=== PATIENT | male | born 1970 | race Caucasian/White ===

== ENCOUNTER 2023-02-28 18:02 | Emergency (ER) | payer OTHER | END 2023-02-28 21:24 | disposition home or self-care (01) | LOC: ED 18:02 | DX: I82.411 Acute embolism and thrombosis of right femoral vein (principal); I82.431 Acute embolism and thrombosis of right popliteal vein; I82.461 Acute embolism and thrombosis of right calf muscular vein; F17.200 Nicotine dependence, unspecified, uncomplicated; Z88.0 Allergy status to penicillin; Z88.5 Allergy status to narcotic agent ==

== ENCOUNTER 2024-09-29 10:31 | Emergency (ER) | payer OTHER ==
[~2024-09-29] VITALS: Ht 185.4 cm; Wt 139.7 kg
[~2024-09-29 10:31] MED LIST: ELIQUIS5 MG PO; NAPROSYN500 MG PO; OXYCODONE HCL10 MG PO; OXYCODONE HCL5 MG PO; PERCOCET 5-3251 EACH PO; PROMETHAZINE HC25 M1 PO; TERBINAFINE15 GM TOP; TRAMADOL HCL50 MG PO; ZOFRAN ODT4 MG SL
--- OUTSIDE RECORDS SUMMARY | 2024-09-29 10:39 | XMS ---
PreManage Notification: RUTH COFFEY Security Analysis Manager Events No recent Security Events currently on file CRITERIA MET - Group Notification CARE PROVIDERS UYEN HAMM Family Medicine 08/09/2023-Current PHONE: [phone] -[facility] Dentist: Supervisor [facility] PHONE: [phone] -Alok- Dentist: Supervisor Stone [facility] PHONE: [phone] [facility] PHONE: [phone] KELLIE TATE Nurse Practitioner: Family Current PHONE: [phone] Ashlee has no Care Guidelines for this patient. Eddie VISIT COUNT (12 MO.) 1 LY Rhoades TOTAL 1 NOTE: Visits indicate total known visits. ED/UCC VISIT TRACKING (12 MO.) 09/29/2024 10:32 LY Valle [place] TYPE: Emergency COMPLAINT: - LEFT KNEE INJURED INPATIENT VISIT TRACKING (12 MO.) No inpatient visits to display in this time frame [id number]
[2024-09-29] MEDS ORDERED: PERCOCET 7.5-31 EACH PO (11:53)
[2024-09-29] MEDS ORDERED: OXYCODONE/APAP 5/325 TAB PO ONE (12:00)
[2024-09-29] MEDS ORDERED: IBUPROFEN 600 MG TAB PO ONE (12:00)
[2024-09-29 12:05] VITALS: BP 141/89
== END 2024-09-29 12:06 | disposition home or self-care (01) ==
LOC: ED 10:31
DX: S83.92XA Sprain of unspecified site of left knee, initial encounter (principal); F17.200 Nicotine dependence, unspecified, uncomplicated; Z88.0 Allergy status to penicillin; Z88.5 Allergy status to narcotic agent; Z79.01 Long term (current) use of anticoagulants; X58.XXXA Exposure to other specified factors, initial encounter
CPT/HCPCS: 73560; 99283; A9270

== ENCOUNTER 2025-01-28 08:26 | Inpatient (IN) | payer OTHER ==
[~2025-01-28] VITALS: Ht 185.4 cm; Wt 145.6 kg
[2025-01-28] VITALS (7 sets, daily range): BP systolic 80–149; BP diastolic 49–100
[~2025-01-28 08:26] MED LIST changes: +PERCOCET 7.5-31 EACH PO
--- OUTSIDE RECORDS SUMMARY | 2025-01-28 08:29 | XMS ---
PreManage Notification: RUTH COFFEY Security It Applications Manager Events No recent Security Events currently on file CRITERIA MET - Group Notification CARE PROVIDERS UYEN HAMM Family Medicine 08/09/2023-Current PHONE: [phone] -[facility] Dentist: Programmer Numerical [employer] [facility] PHONE: [phone] -Alok- Dentist: Programmer Numerical Control [facility] Dental [facility] PHONE: [phone] [facility]: [facility] Health [facility] PHONE: [phone] KELLIE TATE Nurse Practitioner: Family Current PHONE: [phone] Ashlee has no Care Guidelines for this patient. Eddie VISIT COUNT (12 MO.) 2 LY Rhoades TOTAL 2 NOTE: Visits indicate total known visits. ED/UCC VISIT TRACKING (12 MO.) 01/28/2025 08:27 LY [facility]le OR TYPE: Emergency COMPLAINT: - ABDOMINAL PAIN 09/29/2024 10:32 LY [place]le OR TYPE: Emergency COMPLAINT: - LEFT KNEE INJURED DIAGNOSES: - Allergy status to narcotic agent - Allergy status to penicillin - Exposure to other specified factors, initial encounter - assisted (current) use of anticoagulants - Nicotine dependence, unspecified, uncomplicated - Pain in left knee - Sprain of unspecified site of left knee, initial encounter INPATIENT VISIT TRACKING (12 MO.) No inpatient visits to display in this time frame [id number]
[2025-01-28] MEDS ORDERED: MORPHINE SULFATE 4 MG/ML VIAL IV ONE ×2 (08:45→10:15)
[2025-01-28 08:50] LABS: BASOPHILS 0.3 % (0.2-1.2); EOSINOPHILS 0.1 % (0.8-7.0); LYMPHOCYTES 9.9 % (21.8-53.1); MCH 30.4 PG (25.7-32.2); MCHC 34.9 g/dL (32.3-36.5); MCV 87.1 fL (79.0-92.2); MONOCYTES 6.8 % (5.3-12.2); NEUTROPHILS 82.3 % (34.0-67.9); RBC 5.43 M/uL (4.63-6.08)
[2025-01-28 09:13] LABS: ALT (SGPT) 40.0 U/L (14-59); AST (SGOT) 23.0 U/L (15-37); GLOMERULAR FILTRATION RATE,EST 76.0 mL/min (>60); PROTEIN, TOTAL 8.4 g/dL (6.4-8.2); UREA NITROGEN 11.0 mg/dL (7-18)
[2025-01-28] MEDS ORDERED: SODIUM CHLORIDE 0.9% 500 ML IV PRN (09:30)
[2025-01-28] MEDS ORDERED: PIPERACILLIN/TAZOBACTAM 4.5 GM in SODIUM CHLORIDE 0.9% 100 ML IV ONE (09:30)
[2025-01-28 10:13] LABS: LACTIC ACID, BLOOD 2.3 mmol/L (0.4-2.0)
[2025-01-28 10:43] LABS: INR 1.08 (0.80-1.30); PROTIME 13.6 Sec (11.2-14.2)
[2025-01-28] MEDS ORDERED: LACTATED RINGER'S 1,000 ML IV SCH ×3 (10:45→15:45)
[2025-01-28] MEDS ORDERED: MORPHINE SULFATE 10 MG/ML VIAL IV PRN ×2 (10:45→15:45)
[2025-01-28] MEDS ORDERED: KETOROLAC TROMETHAMINE 30 MG/ML VIAL IV PRN ×3 (10:45→19:00)
[2025-01-28] MEDS ORDERED: FAMOTIDINE 20 MG/ 2 ML VIAL IV SCH ×2 (10:48→21:00)
[2025-01-28] MEDS ORDERED: LABETALOL HCL 200 MG TAB PO ONE (11:15)
[2025-01-28 11:59] LABS: LACTIC ACID, BLOOD 2.1 mmol/L (0.4-2.0)
[2025-01-28] MEDS ORDERED: LABETALOL HCL 20 MG/4 ML VIAL IV ONE (12:00)
--- NOTE | 2025-01-28 12:15 | NUR ---
PT BROUGHT TO [employer] VIA STRETCHER, [employer] AT BEDSIDE. PT ABLE TO AMBULATE TO BED, WITHOUT DIFFICULTY. ORIENTED TO CALL LIGHT, IN REACH. PAIN 7/10, PRN MEDICATION GIVEN (SEE EMAR). BLOOD PRESSURE MEDICATION GIVE WELL (SEE VS, AND EMAR). NO OTHER NEEDS AT THIS TIME.
[2025-01-28] MEDS ORDERED: LABETALOL HCL 200 MG TAB PO SCH (12:21)
[2025-01-28] MEDS ORDERED: HYDROmorphone HCL 1 MG/ML SYR IV PRN (12:30)
[2025-01-28] MEDS ORDERED: LABETALOL HCL 20 MG/4 ML VIAL IV PRN (12:30)
[2025-01-28 13:46] LABS: CHOLESTEROL/HDL RATIO 5.2; LDL CHOLESTEROL 145.0 mg/dL (< 129); NON-HDL CHOLESTEROL 198.0; VLDL CHOLESTEROL 53.0
[2025-01-28] MEDS ORDERED: PIPERACILLIN/TAZOBACTAM 4.5 GM in SODIUM CHLORIDE 0.9% 100 ML IV SCH ×2 (14:00→19:00)
--- NOTE | 2025-01-28 14:00 | NUR ---
ECHO IN ROOM, PT NEEDING TO ROLL ON LEFT SIDE. PAIN 10/10, PRN MEDICATION GIVEN (PER EMAR).
[2025-01-28] MEDS ORDERED: SEVOFLURANE 250 ML BTL INH ONE (14:09)
--- NOTE | 2025-01-28 14:42 | NUR ---
UR CLINICAL REVIEW: EYAL, MEETS OBS FOR APPENDECTOMY POSITIVE CT, IV FLUIDS, IV ANALGESICS, NPO EOCCO OBS 01/28/2025 @ 1049 ORDER MATCHES REG NO AUTH REQUIRED FOR OBS PER MEDICAID PLAN TO DC TO HOME WHEN MEDICALLY READY 01/29/2025
--- NOTE | 2025-01-28 14:51 | NUR ---
PT IN ROOM PAIN DECREASED TO 5/10, TOLERABLE. DENIES NEEDS CALL LIGHT IN REACH. VISITOR AT BEDSIDE.
--- NOTE | 2025-01-28 15:03 | NUR ---
INTO SEE PATIENT. PERSONAL HEALTH INFORMATION REVIEWED. PATIENT LIVES IN A CAR OUTSIDE HIS FRIENDS HOUSE. HE STATES BILLS HAVE BEEN TO MUCH AND HE STRUGGLES FOR FOOD. GAVE HIM OUR HOMELESS RESOURCES PHAMPLET. PATIENT STATES HES BEEN TRYING TO GET DISABLITIY FOR A WHILE NOW. DOES NOT USE DME. PATIENT STATES "THEY JUST GAVE ME SOME MEDICINE." NO FUTHER CM NEEDS AT THIS TIME. WILL FOLLOW UP TOMORROW.
[2025-01-28] MEDS ORDERED: LACTATED RINGER'S 1,000 ML IV ONE (15:45)
[2025-01-28] MEDS ORDERED: CEFAZOLIN SODIUM 3 GM/30 ML SYR IV SCH (15:45)
--- NOTE | 2025-01-28 16:17 | NUR ---
PREPROCEDURE WIPEDOWN COMPLETE, BED CHANGE COMPLETE, NEW GOWN, SCDS IN PLACE. PT ABLE TO PERFORM TASKS INDEPENDENTLY. IVF BOLUS INFUSING, CALL LIGHT IN RANGE.
[2025-01-28] MEDS ORDERED: DEXAMETHASONE SOD PHOS 4 MG/ML VIAL ONE (16:31)
[2025-01-28] MEDS ORDERED: LIDOCAINE HCL 2% 5 ML SDV ONE (16:31)
[2025-01-28] MEDS ORDERED: SUCCINYLCHOLINE IN 0.9% NACL 200 MG/10 ML SYRINGE ONE (16:31)
[2025-01-28] MEDS ORDERED: fentaNYL citrate 100 MCG/2 ML VIAL ONE (16:31)
[2025-01-28] MEDS ORDERED: ACETAMINOPHEN 1,000 MG/100 ML VIAL ONE (16:31)
[2025-01-28] MEDS ORDERED: ROCURONIUM BROMIDE 50 MG/5 ML SYR ONE ×2 (16:31→17:01)
--- NOTE | 2025-01-28 16:36 | NUR ---
PT REPORT GIVEN TO OR NURSES, JUN MATTHEW AND JUN YOU. ABX PULLED FROM PYXIS AND SCANNED, GIVEN TO NURSES.
[2025-01-28] MEDS ORDERED: LIDOCAINE HCL 4% 5 ML AMP ONE (16:50)
[2025-01-28] MEDS ORDERED: PHENYLEPHRINE HCL 10 MG/ML VIAL ONE (17:11)
[2025-01-28] MEDS ORDERED: VASOPRESSIN 20 UNITS/ML VIAL ONE (17:14)
[2025-01-28] MEDS ORDERED: GLYCOPYRROLATE 1 MG/5 ML MDV ONE (18:04)
[2025-01-28] MEDS ORDERED: SUGAMMADEX SODIUM 200 MG/2 ML ML ONE (18:39)
[2025-01-28] MEDS ORDERED: IBLOOD GLUCOSE TEST STRIP 1 EA TEST VI PRN (19:00)
[2025-01-28] MEDS ORDERED: fentaNYL citrate 50 MCG/ML SDV IV PRN (19:00)
[2025-01-28] MEDS ORDERED: NALOXONE HCL 0.4 MG SYR IV PRN (19:00)
[2025-01-28] MEDS ORDERED: ALBUTEROL/IPRATROPIUM 3 ML NEB ONE (19:12)
[2025-01-28] MEDS ORDERED: ALBUTEROL/IPRATROPIUM 3 ML NEB INH ONE (19:15)
--- NOTE | 2025-01-28 19:24 | NUR ---
01/28/251923 Jolanta Travis 190-PT ARRIVES TO PACU ON 6L VIA MASK. PT IS NONAROUSABLE TO TACTILE STIMULI. RESP IS LABORED. WHEEZING NOTED. 1909-PHONE CALL TO RT. 1912-RT AT BEDSIDE. RESP LABORED. WHEEZING NOTED. PT IS NONAROUSABLE. 1916-PT AROUSABLE TO VERBAL STIMULI. OPA REMOVED. BIPAP STARTED.
[2025-01-28] MEDS ORDERED: IBUPROFEN 600 MG TAB PO PRN (19:45)
[2025-01-28] MEDS ORDERED: ACETAMINOPHEN 500 MG TAB PO PRN (19:45)
[2025-01-28] MEDS ORDERED: OXYCODONE/APAP 7.5/325 TAB PO PRN (19:45)
--- NOTE | 2025-01-28 19:50 | NUR ---
RECEIVED REPORT FROM M/S NURSE AND PACU NURSE ABOUT PATIENT. PT ON BPAP AT THE TIME OF ARRIVAL, WITHIN MINUTES HE PULLED BIPAP OFF AND STATED "I CAN'T BREATH" PT REMAINED ON ROOM AIR SPO2 92%. PT AWAKE AND ASKED QUESTION AND WENT BACK TO SLEEP.
--- NOTE | 2025-01-28 20:30 | NUR ---
PT AWAKE, PROVIDED WATER AND DRAINED ELIZABETH. PT FELL BACK TO SLEEP 2129 PT AWAKE GAVE HIM SO JUICE AND DENIES PAIN AT THIS TIME. TALKING ON HIS STAR PHONE AT THIS TIME.
--- NOTE | 2025-01-28 21:36 | NUR ---
PT AWAKE DENIES NEED TO VOID AT THIS TIME, URINAL AT BEDSIDE.
--- NOTE | 2025-01-28 22:30 | NUR ---
PT SLEEPING SPO2 DECREASED TO 84% PT PLACED ON O2 2L'S VIA NC. 2245: PT AWAKE, ASKING FOR HELP, HELPED PT PLACE PHONE PRESS CLIPPER TO PHONE AND ON BEDSIDE STAND. PT WANTING TO EAT BISQUET AND GRAVEY. EXPLAINED TO HIM THAT HE NEEDED TO DRINK HIS JUICE AND WATER FIRST. HE AGREED AND FEEL BACK TO SLEEP.
[2025-01-28] MEDS ORDERED: ALBUTEROL/IPRATROPIUM 3 ML NEB INH PRN (23:15)
--- NOTE | 2025-01-28 23:31 | NUR ---
PT APPEARS TO BE SLEEPING RESP RATE EVEN AND UNLABORED. SPO2 95% ON 2L'S NC AT THIS TIME.
[2025-01-29] VITALS (16 sets, daily range): BP systolic 99–146; BP diastolic 60–91
--- NOTE | 2025-01-29 01:30 | NUR ---
PT AWAKEN AND ASKED IF HE WOULD TRY TO VOID. PT WAS ABLE TO VOID 300MLS OF CONTERATED URINE AT THIS TIME. PT IS ABLE TO COUGH AND DEEP BREATH. ENCOURAGE TO USE ABD SPLINT OF PILLOWS TO HOLD HIS INCISIONS DURING COUGHING. PT DOES FOLLOW DIRECTIONS.
--- NOTE | 2025-01-29 06:08 | NUR ---
PT AWAKENS WHEN SPOKEN TOO, HAS PAIN WHEN COUGHING, ASKED PT IF HE COULD VOID "NO i HAVE NOT DRANK ANYTHING YET" ELIZABETH DRAIN EMPTY AND DRESSING NO CHANGES NOTED AT THIS TIME. WILL OFFER ORAL PAIN MEDICATIONS. PT HAS SLEPT ALL NIGHT. IS AT THE BEDSIDE AND REMAINS ON 2L'S VIA NC. FRESH JUICE GIVEN.
[2025-01-29 06:25] LABS: ALT (SGPT) 29.0 U/L (14-59); AST (SGOT) 24.0 U/L (15-37); GLOMERULAR FILTRATION RATE,EST 76.0 mL/min (>60); PROTEIN, TOTAL 6.7 g/dL (6.4-8.2); UREA NITROGEN 14.0 mg/dL (7-18)
--- NOTE | 2025-01-29 06:26 | NUR ---
LAB PRESENT TO OBTAIN LAB AT THIS TIME.
[2025-01-29 06:38] LABS: BASOPHILS 0.3 % (0.2-1.2); EOSINOPHILS 0.1 % (0.8-7.0); LYMPHOCYTES 9.6 % (21.8-53.1); MCH 30.9 PG (25.7-32.2); MCHC 33.6 g/dL (32.3-36.5); MCV 92.0 fL (79.0-92.2); MONOCYTES 9.0 % (5.3-12.2); NEUTROPHILS 80.4 % (34.0-67.9); RBC 4.37 M/uL (4.63-6.08)
--- NOTE | 2025-01-29 06:39 | NUR ---
PT TOLERATING PO LIQUIDS OKAY SO FAR THIS SHIFT, PO PAIN MEDS GIVEN AT THIS TIME ONE TAB, AND SOME APPLESAUSE AND PUDDING CUP. CALL LIGHT WITHIN REACH AND URINAL. PT WILL CALL WHEN HE IS COMPLETED VOIDING.
--- NOTE | 2025-01-29 07:37 | NUR ---
assumed care, rn in pt room - white board updated, pt eyes closed resting in bed, hr 92, call light in reach,
[2025-01-29] MEDS ORDERED: IBLOOD GLUCOSE TEST STRIP 1 EA TEST XX PRN (08:00)
[2025-01-29] MEDS ORDERED: INSULIN LISPRO 100 UNIT/ML ML SUB-Q SCH (08:00)
[2025-01-29] MEDS ORDERED: DEXTROSE 50% 50 ML SYR IV PRN ×2 (08:00)
[2025-01-29] MEDS ORDERED: IBLOOD GLUCOSE TEST STRIP 1 EA TEST VI SCH (08:00)
[2025-01-29] MEDS ORDERED: GLUCAGON,HUMAN RECOMBINANT 1 MG/ML VIAL SUB-Q PRN (08:00)
[2025-01-29] MEDS ORDERED: DEXTROSE 5% 1,000 ML IV PRN (08:00)
--- NOTE | 2025-01-29 09:06 | NUR ---
in room with dr hannah, awaken pt and bs checked 150 before meal - dr educates pt on new dx of diabetes and rn explains what achs accuchecks are. pt amb to br to void 350 and room air trial per dr request. sob with exertion - pt reports to that he currently smokes 1 ppd. 89 % sats on room air and dr bucio like 88-95%. pt up in chair - rapid breating and dim lung sounds, pt obese and large abd. ble with 3+ pitting edema and dark color. pt reports has been this way over 1 year. he reports he lives in his car at a friends property - homeless and can not afford to see dr or get prescriptions, with his life choices. He has a dog. pt in chair and IS is educated and pt demonstrates with encouragement. call light in reach. familia drain to rlq has red drainage and drain is stripped and site is wnl. scope sites to abd from appy wnl - old drainage.
[2025-01-29] MEDS ORDERED: NICOTINE 21 MG/24 HR 1 EA TDSY TD SCH (09:12)
--- NOTE | 2025-01-29 09:44 | NUR ---
ALERT AND ORIENTED IN RECLINER. DOES NOT REMEMBER CONVERSATION WITH CM YESTERDAY. REMINDED OF BROCHURE PROVIDED 01/28/25. REVIEWED WITH HIM RESOURCES FOR FOOD, HOUSING AND RESOURCES THROUGH [employer] ARRAY RX CARD PROVIDED. DISCUSSED HIS INABILITY TO PAY FOR ANY MEDS. STATES HE HAS NO MONEY AT THIS TIME FOR MEDICATIONS, EVEN FOR [employer] $4 MED PROGRAM. DISCUSSED HIS RETURN TO HIS FRIEND'S PLACE WHERE HE IS STAYING IN HIS CAR AND DISCUSSED GETTING HIM SCHEDULED WITH [facility].
--- NOTE | 2025-01-29 09:55 | NUR ---
dr fleming in to see pt - 10/25 pain - iv toradol given, familia shown to . wnl - pt tolerated diet cl/oatmeal. advance to 60 g carb ada for lunch. pt up in chair. diabetic education reviewed with insulin shot. flowsheet reviewed with pt. nicotine patch on left chest - call light in reach.
--- NOTE | 2025-01-29 10:54 | EKG ---
[facility] [address] [facility] [place], [place] [address] Signed Normal sinus rhythm Confirmed by Sara Marquez DO ([id number]) on 01/29/2025 10:54:44 AM Electronically Signed By: SARA MARQUEZ DO 01/29/25 1054 PATIENT NAME: RUTH COFFEY JR Electrocardiogram DATE OF : 68 PHYSICIAN: SARA MARQUEZ DO REPORT #: [id number] REPORT IS CONFIDENTIAL AND NOT TO BE RELEASED WITHOUT AUTHORIZATION
--- NOTE | 2025-01-29 11:56 | OR ---
[facility] [address] [place], [place] [address] Signed DATE OF OPERATION: 01/28/2025 SURGEON: So Gipson MD PREOPERATIVE DIAGNOSES: 1. Acute appendicitis. 2. Morbid obesity, chronic obstructive pulmonary disease, poorly-controlled hypertension (now controlled), history of hepatitis. POSTOPERATIVE DIAGNOSES: 1. Acute appendicitis. 2. Morbid obesity, chronic obstructive pulmonary disease, poorly-controlled hypertension (now controlled), history of hepatitis. 3. Relative hypoxemia secondary to pulmonary secretions. 4. Acute gangrenous appendicitis, retrocecal. PROCEDURES: 1. Flexible bronchoscopy with bronchoalveolar lavage for clearance of secretions. 2. Laparoscopic appendectomy, prolonged, complicated, difficult. ANESTHESIA: General endotracheal, Marlo Mc, AIRCRAFT BODY REPAIRER, and local 0.25% Marcaine with epinephrine 10 mL. INDICATION: This 54-year-old white man is homeless and lives in his car locally. He has had at least 24 hours of increasing right lower abdominal pain. He presented to the emergency room where he was evaluated by Dr. Reardon. He was recognized as having significant underlying problems including uncontrolled hypertension with a presenting blood pressure greater than 220/120, known underlying pulmonary disease, morbid obesity, and prior history of cirrhosis, but not clinically with ascites. A CT scan was performed, which showed fatty liver but no evidence of nodular liver nor sign of ascites, but did confirm significant appendicitis. He is markedly tender and his white count is greater than 20,000. Consultation was undertaken with Dr. Colbert, hospitalist, who assisted in control of his blood pressure now in a normal range using Lopressor predominantly. The patient has been fluid resuscitated, given intravenous antibiotic Ancef and Flagyl, and now to undergo appendectomy preferred by laparoscopic approach. The risk of bleeding, infection, need for open procedure, and other unforeseen complications was reviewed with Electronically Signed By: SO GIPSON MD 01/29/25 1156 PATIENT NAME: RUTH COFFEY JR OPERATIVE REPORT DATE OF : [birth year] REPORT #: [id number] PHYSICIAN: SO GIPSON MD PCP: ALEX NUGENT PA-C REPORT IS CONFIDENTIAL AND NOT TO BE RELEASED WITHOUT AUTHORIZATION [facility] [address] [place], [place] [address] Signed him in detail. He understands and wished to proceed. FINDINGS: He was intubated without difficulty. He had relative hypoxemia in a CO2 waveform which was somewhat unusual in a hashtag configuration with a notch on the uptake of the curve. The endotracheal tube was changed out and ultimately I performed flexible bronchoscopy, which did show some secretions in the airways. No sign of neoplasm or obstruction and a bronchoalveolar lavage was undertaken as well. This did seem to improve his hypoxemia to a degree. As regards to the appendectomy, he had abdominal obesity including intraabdominal fat and a finding of the appendix gangrenous and in a retrocecal configuration, which made for a very challenging operation. It was accomplished safely, however, with complete removal of the appendix and no untoward bleeding. A drain was left in place. Arrangement for a BiPAP device postoperatively has been made and he will be more fully managed in the intensive care unit postoperatively. DESCRIPTION OF PROCEDURE: The patient was brought to the operating room, given a general endotracheal anesthetic. He was noted to have relative hypoxemia given his fractionated oxygen and relative hypotension with a systolic pressure variably between 69 and 73. Various medications were given to improve this. His heart rate was in the 60s dominantly. Glycopyrrolate was given with some benefit. Ultimately, he had ephedrine, Bonifacio-Synephrine, and other agents to sustain a reasonable blood pressure. The CO2 monitor showed a hashtag type CO2 wave but with the on the front side of the curve, which was considered unusual. On that basis, the cutter down exchanged the endotracheal tube for another and it was deemed advisable to perform flexible bronchoscopy. Initially, a disposable GlideScope 3 mm bronchoscope was inserted with the tracheal adapter in place by me. This showed some tenacious secretions of the endotracheal tube, but also of the right and left mainstem bronchi. It was certainly not occlusive, but it was definitely present. Suctioning through this device was unsuccessful and therefore a conventional Olympus flexible bronchoscope with camera attachment was then used allowing for suctioning of these tenacious secretions. They were not copious, but they were definitely present and bronchoalveolar lavage was undertaken with saline solution on both right and left sides in the segmental bronchi. By conclusion, complete clearance of any secretions was noted. It appeared that his oxygenation was improved on that basis alone. The operation proceeded having undergone abdominal clipping and preparation with Hibiclens solution. An infraumbilical incision was made and using an open Reynaldo Electronically Signed By: SO GIPSON MD 01/29/25 1156 PATIENT NAME: RUTH COFFEY OPERATIVE REPORT DATE OF : [birth year] REPORT #: [id number] PHYSICIAN: SO GIPSON MD PCP: ALEX NUGENT PA-C REPORT IS CONFIDENTIAL AND NOT TO BE RELEASED WITHOUT AUTHORIZATION [address] [address] Signed cannula technique, pneumoperitoneum was achieved to a level of 10 mmHg of carbon dioxide gas. This did not have an adverse effect on his vital signs in any way. Another 12 mm epigastric port was placed and camera placed to that site. Single hand manipulation of the right lower quadrant did identify omental adhesions and some inflammatory fluid. The appendix at that point was not visualized. The cecum was well visualized. The right lower quadrant 5 mm port was placed and with 2-hand manipulation, bowel loops and omentum could be from the right lower abdomen, more fully identifying the cecum. The appendix was not free hanging or particularly visible at that point. The Tinea was followed to its base in the cecum and the base of the appendix could ultimately be identified. With various manipulations, one could see that this was a markedly dilated and essentially gangrenous appendix and located in the retrocecal position. A 5 mm port was placed in the mid right abdomen and a fan retractor was used to provide better exposure. Various manipulations which were undertaken ultimately creating a window between the cecum and the appendix and using an Endo-JUDY stapling device with a vascular load, the base of the appendix was transected, flushed with the cecum. This allowed for elevation of the appendix and sequential dissection into the retroperitoneum elevating the mesoappendix and applying clips rather than a stapler at that point. The appendix was relatively lengthy and ultimately the remnant of the mesoappendix could be identified. It was distracted without intention showing no sign of bleeding. The appendix was placed in an endobag and extracted through the infraumbilical port site, opened and appendix expected showing gangrenous changes, but complete excision including the tip of the appendix without question. Irrigation was undertaken in the right lower quadrant in the region of the cecum and the fatty tissue that represented the mesoappendix was apparently hemostatic. Then, an Endo-JUDY vascular load was applied across this fatty tissue to more fully secure it. Irrigation was undertaken in a copious way and a 7 mm flat Enrique drain was placed in the retrocecal area. A 7 mm flat Enrique drain exited through the right lower quadrant incision. A mattress stitch was used to secure the drain. In the inner table of the abdomen, there was some oozing of venous blood. This was secured with electrocautery. The fan retractor port was removed showing no sign of bleeding. Camera was replaced to the infraumbilical site and in the upper abdomen. Irrigation in the region of the hepatic dome was undertaken, removing all excess irrigation fluid. The epigastric port was removed showing no sign of bleeding. The Reynaldo cannula at the umbilicus was removed and the fascial layer reapproximated with interrupted 0 Vicryl suture as well as a running 0 PDS suture. Irrigation was undertaken more fully and the skin was infiltrated with 0.25% Marcaine with epinephrine 10 mL in total. The patient maintained good hemodynamics through the course of operative intervention. The skin was then closed with interrupted 3-0 Vicryl and Steri-Strips were then applied. The patient was Electronically Signed By: SO GIPSON MD 01/29/25 1156 PATIENT NAME: RUTH COFFEY DHRUV OPERATIVE REPORT DATE OF : [birth year] REPORT #: [id number] PHYSICIAN: SO GIPSON MD PCP: ALEX NUGENT PA-C REPORT IS CONFIDENTIAL AND NOT TO BE RELEASED WITHOUT AUTHORIZATION [address] [address] Signed ultimately extubated and transferred to recovery room for further management. He maintained good vital signs throughout the operation. MD BOBBY Gotti/MIGUEL ANGELL /[id number] cc: BÁRBARA Hurtado Copies: ~ Electronically Signed By: SO GIPSON MD 01/29/25 1156 PATIENT NAME: ALEXXRUTH JR OPERATIVE REPORT DATE OF : [birth year] REPORT #: [id number] PHYSICIAN: SO GIPSON MD PCP: ALEX NUGENT PA-C REPORT IS CONFIDENTIAL AND NOT TO BE RELEASED WITHOUT AUTHORIZATION
--- NOTE | 2025-01-29 11:56 | HP ---
[facility] [address] [place], [place] [address] Signed ADMISSION DATE: 01/28/2025 REASON FOR ADMISSION: Acute appendicitis, concurrent multiple medical problems including poorly controlled hypertension. HISTORY OF PRESENT ILLNESS: This morbidly obese, BMI 42.3, 145 kg, 6 feet and 1, white man is homeless and lives in his car. He has done so for the past three years on a property of a "friend" in the [facility] [place] [facility]. He presented to the emergency room today where he was evaluated by Dr. Fung with complaints of severe right lower abdominal pain. This has been going on for more than a day by the sounds of it. Evaluation included CBC showing a white count of 20.4, hematocrit of 47.3, and platelet count of 313,000. His coag studies were normal with an INR of 1.08. Urinalysis was canceled and a Chem profile performed showed a normal sodium, potassium of 3.7, and a creatinine of 1.14, glucose 150, and lactic acid of 2.3. He is considered a code sepsis, given intravenous fluid administration allowing his lactate to improve to 2.1 by 11:30 and ultimately 1.8 by 2:25 p.m. Quite notably, he was significantly hypertensive at presentation 215/124. Consultation was undertaken with Dr. Colbert, the hospitalist. The patient was given labetalol with good benefit and he currently now has a blood pressure of 129/64. His pulse is now 63. An echocardiogram was performed, though I do not currently have the results of that study. The patient says he has had persistent right lower abdominal pain for at least 12 hours and possibly more. He has had no associated nausea or vomiting. He does have a history report of cirrhosis with notable fatty liver disease, history of kidney stones and deep venous thrombosis and has chronic bilateral lower extremity edema. He is taking no medications currently. He was not compliant with Eliquis due to its cost. His right lower extremity was considered to have prior history of DVT in July of 2023 over a year ago. He does have history of smoking status (every day) and surgical history of cholecystectomy, right hand and left foot surgery, liver biopsy, femoral artery repair at [facility], and history of blood transfusion. ALLERGIES: He does have allergies to penicillin, which is considered mild with nausea and hydrocodone. SOCIAL HISTORY: He lives alone in his car as described. He is not , has no children he says. Electronically Signed By: SO GIPSON MD 01/29/25 1156 PATIENT NAME: RUTH COFFEY HISTORY AND PHYSICAL DATE OF : [birth year] REPORT #: [id number] PHYSICIAN: SO GIPSON MD PCP: ALEX NUEGNT PA-C REPORT IS CONFIDENTIAL AND NOT TO BE RELEASED WITHOUT AUTHORIZATION [address] [address] Signed An ultrasound was performed of his lower extremities today showing no evidence of deep venous thrombosis. Chest x-ray showed mild cardiomegaly and low lung volumes. A CT scan showed acute appendicitis without evidence of abscess or perforation. 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 A hypodense lesion in the upper pole of left kidney 1.6 cm was noted and bibasilar segmental atelectasis. At present, he has primarily right lower abdominal pain. No chest pain, shortness of breath, or other similar problem. PHYSICAL EXAMINATION: GENERAL: This is a very large man, who does not look to be systemically toxic at this time. VITAL SIGNS: Current vital signs show blood pressure 129/64, pulse of 78. HEENT: Mucous membranes are dry, however. Trachea is midline. CHEST: Shows normal respiratory excursion without tachypnea. HEART: Regular. ABDOMEN: Quite markedly obese. Rovsing sign is negative. There is marked tenderness in right lower quadrant. EXTREMITIES: Show bilateral edema. There is no sign of ulceration at this time. LABORATORY STUDIES: Showed a white count 20.4, hematocrit 47.3, platelets 337. Coag studies normal. INR 1.08 and previously noted. Electrolytes normal. ASSESSMENT: The patient has acute appendicitis for which appendectomy would be the appropriate treatment in his situation, though it may be challenging given his extreme obesity. The laparoscopic approach would be most appropriate if possible. Review of his CT does not show nodular changes of the liver and I see no evidence of ascites, although with a prior reported history of cirrhosis, one has some concern obviously. He has no stigmata currently of portal hypertension or thrombocytopenia, which is a secondary indicator and I do not detect splenomegaly per se. The risks of operation were reviewed with him, which include bleeding, infection, need for an open rather than a laparoscopic approach. He understands this and wishes to proceed. We have taken as much care as possible to optimize him for operation. I believe he is medically stationary in that regard, not currently hypertensive and certainly with peritonitis and peritoneal findings of appendicitis. Electronically Signed By: SO GIPSON MD 01/29/25 1156 PATIENT NAME: RUTH COFFEY HISTORY AND PHYSICAL DATE OF : [birth year] REPORT #: [id number] PHYSICIAN: SO GIPSON MD PCP: ALEX NUGENT PA-C REPORT IS CONFIDENTIAL AND NOT TO BE RELEASED WITHOUT AUTHORIZATION [facility] [address] [place] [address] Signed MD BOBBY Gotti/ARIANNE /[id number] cc: Darshan Fung MD [facility] RADAMES Hodge Copies: ~ Electronically Signed By: SO GIPSON MD 01/29/25 1156 PATIENT NAME: ALEXXRUTH HISTORY AND PHYSICAL DATE OF : 68 REPORT #: [id number] PHYSICIAN: SO GIPSON MD PCP: ALEX NUGENT PA-C REPORT IS CONFIDENTIAL AND NOT TO BE RELEASED WITHOUT AUTHORIZATION
--- NOTE | 2025-01-29 16:36 | NUR ---
pt sleeping in chair - awakened and pt denies needs. explained trsf to ms 109 - report was given to jeet candelario, all pt belongings to room 109. vss - taken in ccu then pt taken in chair to new room by this rn. familia drained wnl. and bedside report i/o to jeet.
--- NOTE | 2025-01-29 16:39 | NUR ---
PT TO [employer] VIA RECLINER ALERT AND INTERACTIVE REPORT RECEIVED FROM CCU RN. PT AGREES HE IS COMFORTABLE FRESH H20 TO CHAIRSIDE ORIENTED TO ROOM AND CONTROLS.
--- NOTE | 2025-01-29 16:50 | NUR ---
PT UP TO TOILET APPEARS STEADY ON HIS FEET. AMBULATES THE ROTH SBA PT SOB BUT OTHERWISE TOLERATES IT WELL. RECOVERS BREATH QUICKLY AT REST
[2025-01-29] MEDS ORDERED: AMOXICILLIN/CLAVULANATE K 875 MG TAB PO SCH (17:00)
[2025-01-29] MEDS ORDERED: ATORVASTATIN 10 MG TAB PO SCH (17:00)
--- NOTE | 2025-01-29 17:25 | NUR ---
PT REMAINS UP IN THE CHAIR EATS 100% OF EVENING MEAL. REQUESTS MORE FLUIDS. SATS 94% ON RA NO OTHER NEEDS
--- NOTE | 2025-01-29 19:34 | NUR ---
IN TO CHECK ON PT, PT RESTING WITH EYES CLOSED IN HIS CHAIR. CALL LIGHT WITH IN REACH. PULSE OX 90% ON RA.
[2025-01-29] MEDS ORDERED: FAMOTIDINE 20 MG TAB PO SCH (21:00)
[2025-01-29] MEDS ORDERED: LOSARTAN POTASSIUM 25 MG TAB PO SCH (21:00)
--- NOTE | 2025-01-29 21:54 | NUR ---
pt CPOX WAS ALARMING. pt WAS DESATTING TO 81% WHILE ON RA AND ASLEEP. THIS RN PLACED pt ON 1LNC TO MAINTAIN SAT AT 88 - 92%. pt DENIES ANY OTHER NEEDS AT THIS TIME. CALL LIGHT WITHIN REACH.
--- NOTE | 2025-01-29 22:29 | NUR ---
IN TO CHECK ON PT, PT RESTING WITH EYES CLOSED. PT ON 1L/NC PULSE OX 92%, PULSE 86. CALL LIGHT WITH IN REACH.
--- NOTE | 2025-01-29 23:36 | NUR ---
IN TO CHECK ON PT, PT RESTING WITH EYES CLOSED. PT PULSE OX 91% ON 1L/NC. CALL LIGHT WITH IN REACH.
--- NOTE | 2025-01-30 00:29 | NUR ---
ANSWERED CALL LIGHT, PT UP TO BATHROOM. PT REQUESTING JUICE, REFILLED WATER AND DIET JUICE. ENCOURAGED PT TO DRINK WATER, BETTER FOR BLOOD SUGAR AND THINS SECRETIONS. PT GIVEN A PILLOW TO SUPPORT ABDOMEN WHILE COUGHING. PT BACK IN BED WITH FEET ELEVATED WITH TWO PILLOWS. PT WATCHING TV. CALL LIGHT WITH IN REACH. PT REMINDED TO MOVE FEET IN GAS PEDAL MOTION, PT IS DOING THIS.
--- NOTE | 2025-01-30 01:50 | NUR ---
PT RESTING WITH EYES CLOSED. PT PULSE OX 92% ON 1L/NC. CALL LIGHT WITH IN REACH.
--- NOTE | 2025-01-30 03:07 | NUR ---
PT RESTING WITH EYES CLOSED, PULSE OX 94% ON 1L/NC. CALL LIGHT WITH IN REACH.
--- NOTE | 2025-01-30 03:19 | NUR ---
ANSWERED CALL LIGHT, PT UP TO BATHROOM. PT REPORTS BEING VERY UNCOMFORTABLE IN THE BED DUE TO BACK AND HIP PAIN, PT REQUESTS TO SIT IN CHAIR. PT IN CHAIR WATCHING TV AND CHECKING HIS PHONE. PT HAS HIS DRINKS, REMOTE, PHONE, AND CALL LIGHT ALL WITHIN REACH. DISCONTINUED PT'S O2 DUE TO HIS PULSE OX BEING 94%, PER DR. MARQUEZ'S ORDERS PT ONLY NEEDS O2 TO MAINTAIN PULSE OX 88-92% GIVEN HIS COPD.
--- NOTE | 2025-01-30 05:07 | NUR ---
PT RESTING WITH EYES CLOSED IN CHAIR. PULSE OX 94%. CALL LIGHT WITHIN REACH.
[2025-01-30 05:42] LABS: BASOPHILS 0.7 % (0.2-1.2); EOSINOPHILS 1.4 % (0.8-7.0); LYMPHOCYTES 16.5 % (21.8-53.1); MCH 30.5 PG (25.7-32.2); MCHC 34.4 g/dL (32.3-36.5); MCV 88.7 fL (79.0-92.2); MONOCYTES 8.0 % (5.3-12.2); NEUTROPHILS 72.5 % (34.0-67.9); RBC 4.43 M/uL (4.63-6.08)
[2025-01-30 05:56] LABS: ALT (SGPT) 13.0 U/L (14-59); AST (SGOT) 13.0 U/L (15-37); GLOMERULAR FILTRATION RATE,EST 75.0 mL/min (>60); PROTEIN, TOTAL 6.6 g/dL (6.4-8.2); UREA NITROGEN 18.0 mg/dL (7-18)
[2025-01-30 06:00] VITALS: BP 147/86
--- NOTE | 2025-01-30 06:28 | NUR ---
IN WITH PT FOR ASSESSMENT, PT UP TO BATHROOM. PT REPORTS "CAN'T GET COMFORTABLE, HAS TRIED THE BED AND THE CHAIR." PT REPORTS PAIN 6/10 LOCATED IN ABDOMEN AND HIS BACK. PT TOLERATES ASSESSMENT WELL BUT CONTINUES TO C/O DISCOMFORT. ADMINISTERED PAIN MEDICATION PER MAR. PT ENCOURAGED TO AMBULATE, COUGH AND DEEP BREATH, AND USE PILLOW TO SUPPPORT ABDOMEN WHEN COUGHING. PT IS RECEPTIVE. DISCUSSED PT SHOULD AMBULATE BUT MOVE SLOWLY. PT REPORTS HE IS PASSING GAS. WANTS TO ORDER BREAKFAST. BREAKFAST ORDERED. REFILLED WATER AND PT REQUESTED A JUICE. PT SITTING IN CHAIR WITH HIS PHONE. CALL LIGHT WITH IN REACH.
--- NOTE | 2025-01-30 06:57 | NUR ---
REPORT RECEIVED FROM COCKTAIL WAITRESS RN JUN CHEN.
--- NOTE | 2025-01-30 07:45 | NUR ---
PATIENT IS SITTING UPRIGHT IN THE CHAIR WITH EYES OPEN AND RESPIRATIONS ARE EVEN AND UNLABORED. PATIENT IS ALERT AND ORIENTED. 0800 MEDICATIONS ADMINISTERED PER THE EMAR. PATIENT IS A SBA TO THE BATHROOM. PATIENT IS ON ROOM AIR WITH THE CPOX AT BEDSIDE. LUNG SOUNDS ARE CLEAR THROUGHOUT. PATIENT IS ON A 60 GRAM CARB DIET. PATIENT WITH 4 LAP SITES ON THE ABDOMEN WITH DRY DRAINAGE NOTED. RLQ WITH ELIZABETH DRAIN IN PLACE WITH SEROSANGUINEOUS DRAINAGE NOTED IN THE BULB. ELIZABETH DRESSING WITH GAUZE IN TAPE. ABDOMEN WITH MILD DISTENTION NOTED. BOWEL TONES ARE ACTIVE IN ALL FOUR QUADRANTS. IV SITES BOTH FLUSHED WITH 10 ML NORMAL SALINE. IV STES ARE SALINE LOCKED AND DRESSINGS ARE CLEAN, DRY, AND INTACT. CARDIAC WITH NORMAL S1 AND S2 ON AUSCULTATION. RADIAL PULSES ARE STRONG BILATEARLLY. DOPPLED USED FOR BILATERAL PEDAL PULSES. BLE WITH 3+ PITTING EDEMA NOTED. PATIENT REPORTS THAT IS NORMAL. CAPILLARY REFILL IN THE UPPER AND LOWER EXTREMITIES IS LESS THAN 3 SECONDS BILATERALLY. NUMBNESS NOTED TO THE RIGHT HAND PER PATIENT REPORT. PATIENT RATED PAIN 4/10 IN THE ABDOMEN. PATIENT IS NOT REQUESTING ANYTHING FOR PAIN. PATIENT REFUSED ELEVATING THE BILATERAL LEGS AT THIS TIME. PATIENT STATED NO FURTHER NEEDS AT THIS TIME. CALL LIGHT AND PERSONAL BELONGINGS ARE WITHIN REACH.
--- NOTE | 2025-01-30 08:09 | NUR ---
PATIENT IS SITTING UPRIGHT IN THE CHAIR WITH EYES OPEN AND RESPIRATIONS ARE EVEN AND UNLABORED. TV IS ON. CPOX AT BEDSIDE. PATIENT STATED NO FURTHER NEEDS AT THIS TIME. CALL LIGHT AND PERSONAL BELONGINGS ARE WITHIN REACH.
--- NOTE | 2025-01-30 08:55 | NUR ---
PATIENT AMBULATED IN THE HALLWAY WITH THIS RN. PATIENT TOLERATED WELL. BANDAGE ON THE OLD ELIZABETH DRAIN SITE SATURATED. NEW BANDAGE PLACED AT THIS TIME. CPOX REMOVED. FRESH CUP OF CRANBERRY JUICE PROVIDED PER PATIENT REQUEST. PATIENT IS SITTING UPRIGHT IN THE CHAIR AND STATED NO FURTHER NEEDS. CALL LIGHT AND PERSONAL BELONGINGS ARE WITHIN REACH.
[2025-01-30] MEDS ORDERED: ONE TOUCH ULTR1 EACH VI (09:00)
[2025-01-30] MEDS ORDERED: METRONIDAZOLE250 MG PO (09:00)
[2025-01-30] MEDS ORDERED: AMOX TR-K CLV1 EAC1 PO (09:00)
[2025-01-30] MEDS ORDERED: ACETAMINOPHEN500 MG PO (09:00)
[2025-01-30] MEDS ORDERED: OXYCODON-ACETA1 EAC2 PO (09:00)
[2025-01-30] MEDS ORDERED: IBUPROFEN600 MG PO (09:00)
[2025-01-30] MEDS ORDERED: NICOTINE1 EAC2 TD (09:00)
[2025-01-30] MEDS ORDERED: FAMOTIDINE20 MG PO (09:00)
[2025-01-30 09:09] VITALS: BP 152/75
[2025-01-30 09:10] VITALS: BP 152/75
[2025-01-30 09:11] VITALS: BP 152/75
--- NOTE | 2025-01-30 09:13 | NUR ---
IN TO SPEAK WITH PATIENT. HE IS PLANNING TO DISCHARGE TODAY. DR. MARQUEZ WOULD LIKE TO DC PATIENT WITH [facility], REVIEWED [facility] LIST OF APPROVED MEDS. DR. MARQUEZ NOTIFIED [facility] MAY NEED PRIOR AUTH IF PRESCRIBED. PATIENT STATES HE HAS NO OTHER NEEDS. HAS A FRIEND HE IS GOING TO STAY WITH. REFERRAL FOR [facility] CASE MANAGEMENT TEAM FAXED SINCE PATIENT IS HOMELESS, HAS NO MONEY FOR PRESCRIPTIONS AND IS A NEWLY DIAGNOSED DIABETIC.
[2025-01-30] MEDS ORDERED: PIOGLITAZONE HC15 MG PO (09:34)
[2025-01-30] MEDS ORDERED: METFORMIN HCL1000 M1 PO ×2 (09:34→09:48)
--- NOTE | 2025-01-30 09:40 | NUR ---
ABD PAD WITH FOAM TAKE PLACED ON PATIENT ABDOMEN WHERE THE ELIZABETH DRAIN WAS IN THE RLQ. GAVE VERBAL ORDER FOR THIS DRESSING DUE TO A SECOND BANDAID BECOMING SATURATED. PATIENT IS SPEAKING WITH THE DIABETIUC EDUCATOR AT THIS TIME. CALL LIGHT AND PERSONAL BELONGINGS ARE WITHIN REACH.
[2025-01-30] MEDS ORDERED: COZAAR50 MG PO (09:48)
[2025-01-30] MEDS ORDERED: ACTOS15 MG PO (09:48)
--- NOTE | 2025-01-30 10:35 | NUR ---
PATIENT IS IN THE RESTROOM AT THIS TIME. PATIENT STATED NO FURTHER NEEDS. CALL LIGHT/CORD WITHIN REACH.
--- NOTE | 2025-01-30 10:39 | NUR ---
VISITED DURING SPIRITUAL CARE ROUNDS. PT IN OVERALL GOOD SPIRITS; NO IMMEDIATE NEEDS. BENCH TECHNICIAN PROVIDED SUPPORTIVE PRESENCE, HOSPITALITY, PRAYER, FACILITATED INTERACTION WITH THERAPY ANIMAL. PT EXPRESSED GRATITUDE, HOPE.
--- NOTE | 2025-01-30 11:02 | NUR ---
NOTIFIED OF ECHO REPORT. ASKED THIS RN ABOUT EF. THIS RN TOLD MD LEFT VENTRICLE EF IS 65%. MD STATED TO PUT THE REPORT IN THE PATIENT CHART. NO FURTHER ORDERS AT THIS TIME. CALL ENDED.
--- NOTE | 2025-01-31 10:49 | DS ---
[facility] [address], [place] [address] Signed ADMISSION DATE: 01/29/2025 DISCHARGE DATE: 01/30/2025 REASON FOR ADMISSION: Acute appendicitis and hypertension and diabetes out of control. HISTORY OF PRESENT ILLNESS: This morbidly obese 54-year-old white man is a former patient of BÁRBARA Townsend, who has since left this area. The patient is homeless, living in his car in the recent past. He presented to the emergency room with significant right lower abdominal pain, evaluated by Dr. Reardon who recognized the high probability of appendicitis. The patient was noted to have a blood pressure greater than 220/120 and known underlying pulmonary disease, morbid obesity, and prior history of cirrhosis, but without evidence of ASCITES in the past. Evaluation was undertaken including a CT scan of the abdomen confirming a fatty liver, but no sign of nodular changes of the liver nor ascites and significant appendicitis. His white count is greater than 20,000. HOSPITAL COURSE: The patient was admitted, given intravenous fluid resuscitation, broad-spectrum antibiotic, Zosyn and consultation with hospitalist, Dr. Colbert. His blood pressure was controlled with intravenous Lopressor. He was subsequently given antibiotic Ancef and Flagyl and taken to the operating room for appendectomy preferred by laparoscopic approach. After intubation, he was relatively hypotensive with systolic pressure of 69 and a pulse in the 60s requiring pressor agents and was also noted to have marginal oxygenation with saturations lower than expected given his FiO2. On that basis, intraoperative bronchoscopy with bronchoalveolar lavage was undertaken by nv showing some mucoid material within the tracheobronchial tree. Clearance of the secretions did seem to improve his oxygenation. Operation proceeded with laparoscopic appendectomy, which was rather prolonged, complicated, and difficult given his obesity, extent of inflammation and operative findings, which included gangrenous appendicitis without abscess formation. A drain was left in place. Postoperatively, he was taken to the intensive care unit given his underlying cardiopulmonary disease. He was monitored carefully and had progressive improvement and no cardiopulmonary decompensation. A plan of the hospitalist Dr Colbert was outlined for long-term blood sugar control as his hemoglobin A1c was found to be 14. The drain was removed on the second postoperative day as it had only serosanguineous Electronically Signed By: SO GIPSON MD 01/31/25 1049 PATIENT NAME: RUTH COFFEY JR DISCHARGE SUMMARY DATE OF : [birth year] REPORT #: [id number] PHYSICIAN: SO GIPSON MD PCP: JUSTIN NUGENT PA-C REPORT IS CONFIDENTIAL AND NOT TO BE RELEASED WITHOUT AUTHORIZATION [facility] [address] [place] [id number] Signed fluid with no sign of purulence and the patient was markedly improved. A plan at discharge is for him to a safer home environment. His friend has a trailer that he will be staying in on his property in the [facility] in the [facility]. He has been aligned with RADAMES Krueger for further followup regarding his medical problems including hypertension and diabetes. DISCHARGE MEDICATIONS: 1. Will include amoxicillin clavulanic acid (Augmentin 875/125 one tab p.o. b.i.d. with meals, #12, refill zero). 2. Flagyl 250 mg p.o. t.i.d., #18, refill zero. 3. Nicotine patch 21 mg topically daily, #30, refill two. 4. Motrin 600 mg p.o. q.6 hours as needed for pain, #30, refill one. 5. Percocet 7.5/325 1-2 p.o. q.6 hours as needed for severe pain, #6, no refill. 6. Tylenol plain 500 mg two tablets p.o. q.6 hours as needed for pain, #30, refill one. 7. Blood sugar OneTouch Ultra Test strips with meals and h.s. 8. Pepcid 20 mg p.o. q.12 hours, #60, refill three. 9. Metformin extended release 1000 mg p.o. daily, #30. 10. Losartan 50 mg 1-2 p.o. daily, #30, refill six. 11. Pioglitazone, Actos 50 mg p.o. daily, #30, refill six. FOLLOWUP PLANS: He will return to see me in approximately one month. He will follow up with Justin CRUM, his new primary care provider in the [facility], in the coming week or so. DISCHARGE DIAGNOSES: 1. Gangrenous appendicitis, status post laparoscopic appendectomy. 2. Intraoperative mild hypoxemia requiring flexible bronchoscopy and bronchoalveolar lavage. 3. Morbid obesity. 4. Untreated hypertension. 5. Diabetes mellitus (new diagnosis). 6. Distant history of cirrhosis. Clinical observation currently not severe if present at all. So Gipson MD Electronically Signed By: SO GIPSON MD 01/31/25 1049 PATIENT NAME: ALEXXRUTH JR DISCHARGE SUMMARY DATE OF : [birth year] REPORT #: [id number] PHYSICIAN: SO GIPSON MD PCP: JUSTIN NUGENT PA-C REPORT IS CONFIDENTIAL AND NOT TO BE RELEASED WITHOUT AUTHORIZATION [facility] [address] [facility] [place] [address] Signed /[facility] /[id number] cc: RADAMES Krueger, DO Darshan Sandoval MD [facility] Copies: ~ Electronically Signed By: SO GIPSON MD 01/31/25 1049 PATIENT NAME: ALEXXRUTH DISCHARGE SUMMARY DATE OF : [birth year] REPORT #: [id number] PHYSICIAN: SO GIPSON MD PCP: JUSTIN NUGENT PA-C REPORT IS CONFIDENTIAL AND NOT TO BE RELEASED WITHOUT AUTHORIZATION
--- NOTE | 2025-01-31 12:35 | PATH ---
[facility] [address] [facility] [place], [place] [address] Signed SPECIMEN(S): A APPENDIX SPECIMEN SOURCE: A. APPENDIX CLINICAL HISTORY: RLQ pain, acute appendectomy FINAL PATHOLOGIC DIAGNOSIS: Appendix, appendectomy: - Acute appendicitis with transmural inflammation and localized acute peritonitis. - A 2.0 mm defect, consistent with perforation, is identified in the midportion of the appendix. - Negative for dysplasia and malignancy. SDL MICROSCOPIC EXAMINATION: Histologic sections of all submitted blocks are examined by light microscopy. These findings, together with the gross examination, support the pathologic diagnosis. GROSS DESCRIPTION: The specimen, labeled and designated "José Lara, appendix per requisition," is received in formalin and consists of Specimen: Appendix with mesoappendix. Dimensions: 11.1 x 1.4 x 1.2 cm. Serosa: Negron-pink with areas of sloughing. Defect: There is a 0.2 x 0.2 cm area of perforation in the center of the specimen. This defect is inked black. Inking: Staple line is inked blue. Mucosa: Negron-brown and dilated up to 0.9 cm. Fecalith: Not grossly identified. Additional: None. Printing Grey Cloth Tender sections are submitted in (A1). AA (under the direct supervision of a pathologist) The Gross Description was prepared using a voice recognition system. The report was reviewed for accuracy; however, sound-alike word errors, addition and/or deletions may occur. If there are any questions about this report, please contact Client Services. PATIENT NAME: RUTH LARA JR PATHOLOGY DATE OF : [birth year] REPORT #: [id number] PHYSICIAN: VANESSA FONTAINE PCP: ALEX NUGENT PA-C REPORT IS CONFIDENTIAL AND NOT TO BE RELEASED WITHOUT AUTHORIZATION [address] [address] Signed ADDITIONAL NOTES: Immunohistochemical and/or in situ hybridization studies if performed in this case included appropriate positive controls that reacted as expected. This test was developed and its performance characteristics determined by [facility]. It has not been cleared or approved by the U.S. Food and Drug Administration. The FDA has determined that such clearance or approval is not necessary. This test is used for clinical purposes. It should not be regarded as investigational or for research. [facility] is certified under the Clinical Laboratory Improvement Amendments of 1988 (CLIA) as qualified to perform high complexity clinical laboratory testing. PERFORMING LABORATORY: Technical component was performed by [facility], [address] [place] [id number] (CLIA# [id number]). Professional interpretation was performed by [facility], [address] [place] [id number] (CLIA#: [id number]). Diagnostician: Mitra Tovar MD Pathologist Electronically Signed 01/31/2025 Copies: ~ PATIENT NAME: RUTH LARA JR PATHOLOGY DATE OF : [birth year] REPORT #: [id number] PHYSICIAN: VANESSA FONTAINE PCP: ALEX NUGENT PA-C REPORT IS CONFIDENTIAL AND NOT TO BE RELEASED WITHOUT AUTHORIZATION
== END 2025-01-30 12:00 | disposition home or self-care (01) | DRG 398 ==
LOC: ED 08:26 → CCU 08:28 → MS 08:28 → CCU 19:50 → MS 01-29 15:01
PROVIDERS: Emergency Medicine; Student in an Organized Health Care Education/Training Program; ADMIT Surgery; ATTEND Surgery
PROC: 3E03329 Introduction of Other Anti-infective into Peripheral Vein, Percutaneous Approach (ICD-10-PCS; 2025-01-28)
PROC: 3E033XZ Introduction of Vasopressor into Peripheral Vein, Percutaneous Approach (ICD-10-PCS; 2025-01-28)
PROC: 5A09357 Assistance with Respiratory Ventilation, Less than 24 Consecutive Hours, Continuous Positive Airway Pressure (ICD-10-PCS; 2025-01-28)
PROC: 0DTJ4ZZ Resection of Appendix, Percutaneous Endoscopic Approach (ICD-10-PCS; principal; 2025-01-28 16:25)
PROC: 0B9M8ZX Drainage of Bilateral Lungs, Via Natural or Artificial Opening Endoscopic, Diagnostic (ICD-10-PCS; 2025-01-28 16:25)
DX: K35.31 Acute appendicitis with localized peritonitis and gangrene, without perforation (principal); E87.20 Acidosis, unspecified; Z59.02 Unsheltered homelessness; Z68.41 Body mass index [BMI] 40.0-44.9, adult; I10 Essential (primary) hypertension; I16.0 Hypertensive urgency; I71.43 Infrarenal abdominal aortic aneurysm, without rupture; N28.89 Other specified disorders of kidney and ureter; E11.9 Type 2 diabetes mellitus without complications; K76.0 Fatty (change of) liver, not elsewhere classified; E78.5 Hyperlipidemia, unspecified; K74.69 Other cirrhosis of liver; F17.200 Nicotine dependence, unspecified, uncomplicated; E66.01 Morbid (severe) obesity due to excess calories; J44.9 Chronic obstructive pulmonary disease, unspecified; I95.9 Hypotension, unspecified; R09.02 Hypoxemia; Z86.19 Personal history of other infectious and parasitic diseases; Z86.718 Personal history of other venous thrombosis and embolism; Z88.0 Allergy status to penicillin; Z88.5 Allergy status to narcotic agent
CPT/HCPCS: 00840; 36415; 71045; 74177; 80053; 80061; 83036; 83605; 83690; 83880; 85025; 85060; 85610; 85730; 93005; 93010; 93306; 93970; 94660; 94762; A9270; J0131; J0330; J0690; J0696; J1100; J1171; J1815; J1885; J2003; J2270; J2371; J2405; J2543; J2704; J3010; J3490; J7040; J7121; Q9967